=== PATIENT | female | born 1950 | race Caucasian/White ===

== ENCOUNTER → 2017-11-26 | Outpatient (CLI) | payer OTHER | LOC: FIMAGING 15:37 | PROVIDERS: ATTEND Family Medicine | DX: Z12.31 Encounter for screening mammogram for malignant neoplasm of breast (principal) ==

== ENCOUNTER 2017-12-01 13:10 | Emergency (ER) | payer OTHER ==
[2017-12-01] MEDS ORDERED: NS 1,000 ML IV ONE (13:41)
[2017-12-01 13:50] LABS: PLATELET COUNT 255 10^3/uL (150-400)
--- NOTE | 2017-12-01 15:00 | EDPHY ---
H & P Time Seen by Provider: 12/01/17 13:17 HPI/ROS: 67-year-old female presents complaining of mild headache for approximately 5 days, and then yesterday began having vomiting, she states she could really not keep any liquids down whatsoever. She denies abdominal pain she denies prior history of migraine or series headaches and states this headache was actually relatively mild. She has had other episodes where when exhausted or extremely dehydrated that she began vomiting. She has a prescription for Phenergan at home and tried this yesterday but continued to have vomiting and presents here today. No fevers or chills No diarrhea No abdominal pain No neck pain She sounds congested but states that is her normal voice and pupil are always asking her if she has a cold, she does say that she frequently has sinus congestion but does not consider that to be an issue today. She has been working long hours and in addition to that she is taking a class outside of work. No change in personality noted by family members. Review of systems As per HPI General no fever no chills no weakness HEENT no eye pain no eye discharge. No eye redness, no sore throat Respiratory no cough, no shortness of breath Cardiac no chest pain, no peripheral edema GI no abdominal pain, no diarrhea, no constipation, positive nausea positive vomiting no flank pain, no hematuria, no dysuria Musculoskeletal no myalgias, no joint pain Heme no easy bruising, no easy bleeding Endo no polyuria, no polydipsia Skin no rashes, no pruritus Neuro no syncope, no dizziness, positive headaches Psych is no suicidal ideation, no homicidal ideation Past Medical/Surgical History: Frequent sinus infections Social History: Alcohol rarely, socially Denies drug use Smoking Status: Never smoked Physical Exam: 67-year-old female, petite, in no acute distress nontoxic appearance, afebrile HEENT atraumatic normocephalic, extraocular muscles intact, anicteric Oropharynx negative for erythema negative exudate, tolerating her own secretions Neck supple no meningismus, no JVD Lungs clear to auscultation bilaterally, no respiratory distress Heart regular rate and rhythm without murmur rub or gallop Abdomen nondistended normoactive bowel sounds soft nontender Back no CVA tenderness, no step-offs, no spinal tenderness Extremities no cyanosis clubbing or edema Neuro alert and oriented, no focal deficits Constitutional: Initial Vital Signs Temperature (C) 37.2 C 12/01/17 13:20 Heart Rate 88 12/01/17 13:20 Respiratory Rate 18 12/01/17 13:20 Blood Pressure 158/90 H 12/01/17 13:20 O2 Sat (%) 96 12/01/17 13:20 O2 Delivery Mode Room Air Allergies/Adverse Reactions: aspirin Allergy (Verified 12/01/17 13:20) Penicillins Allergy (Verified 12/01/17 13:19) Sulfa (Sulfonamide Antibiotics) Allergy (Verified 12/01/17 13:19) Home Medications: Medication Instructions Recorded Ondansetron Odt [Zofran Odt 4 mg 4 mg PO Q4 PRN #10 tab 12/01/17 (*)] Medical Decision Making - Diagnostics Imaging Results: Imaging Impressions Head CT 12/01/17 13:40 Impression: 1. No significant intracranial abnormality seen. 2. Moderate paranasal sinus disease. If symptoms worsen, additional imaging may be necessary. Findings discussed with Pia Austin MD at 14:18 hour, 12/01/2017. ED Course/Re-evaluation: Patient seen and evaluated for mild headache with vomiting Patient had taken Phenergan yesterday without relief but is currently refusing antiemetics. IV established to give her IV fluids, and bloods drawn. CBC within normal limits Erythrocyte sedimentation rate normal BMP normal CT brain negative for acute intracranial pathology Paranasal sinus fluid Impression Headache Vomiting,? Stress-induced, question exhaustion Mild sinus fullness paranasal on CT scan Plan Patient feeling markedly better after fluids in emergency department is now tolerating p.o. Fluids here Recommend rest, plenty of fluids In terms of paranasal sinus fluid, recommend decongestant, Flonase, sinus rinse as needed Follow-up with primary care physician Differential Diagnosis: Differential diagnosis considered but not limited to: Migraine, cluster headache, sinusitis, brain tumor, hydrocephalus, acute gastritis, dehydration, exhaustion - Data Points Laboratory Results: Laboratory Results 12/01/17 13:35 12/01/17 13:35 12/01/17 12/01/17 12/01/17 13:35 13:35 13:35 WBC 7.55 10^3/uL 10^3/uL (3.80-9.50) RBC 4.57 10^6/uL 10^6/uL (4.18-5.33) Hgb 14.2 g/dL g/dL (12.6-16.3) Hct 40.4 % % (38.0-47.0) MCV 88.4 fL fL (81.5-99.8) MCH 31.1 pg pg (27.9-34.1) MCHC 35.1 g/dL g/dL (32.4-36.7) RDW 12.7 % % (11.5-15.2) Plt Count 255 10^3/uL 10^3/uL (150-400) MPV 10.0 fL fL (8.7-11.7) Neut % (Auto) 74.5 % H % (39.3-74.2) Lymph % (Auto) 16.7 % % (15.0-45.0) [place] % (Auto) 7.9 % % (4.5-13.0) Eos % (Auto) 0.1 % L % (0.6-7.6) Baso % (Auto) 0.5 % % (0.3-1.7) Nucleat RBC Rel Count 0.0 % % (0.0-0.2) Absolute Neuts (auto) 5.62 10^3/uL 10^3/uL (1.70-6.50) Absolute Lymphs (auto) 1.26 10^3/uL 10^3/uL (1.00-3.00) Absolute Monos (auto) 0.60 10^3/uL 10^3/uL (0.30-0.80) Absolute Eos (auto) 0.01 10^3/uL L 10^3/uL (0.03-0.40) Absolute Basos (auto) 0.04 10^3/uL 10^3/uL (0.02-0.10) Absolute Nucleated RBC 0.00 10^3/uL 10^3/uL (0-0.01) Immature Gran % 0.3 % % (0.0-1.1) Immature Gran # 0.02 10^3/uL 10^3/uL (0.00-0.10) ESR 8 MM/HR MM/HR (0-30) D-Dimer < 0.27 ug/mLFEU ug/mLFEU (0.00-0.50) Sodium 134 mEq/L L mEq/L (135-145) Potassium 3.4 mEq/L L mEq/L (3.5-5.2) Chloride 100 mEq/L mEq/L (97-110) Carbon Dioxide 22 mEq/l mEq/l (22-31) Anion Gap 12 mEq/L mEq/L (8-16) BUN 15 mg/dL mg/dL (7-23) Creatinine 0.6 mg/dL mg/dL (0.6-1.0) Estimated GFR > 60 Glucose 116 mg/dL H mg/dL (70-100) Calcium 9.5 mg/dL mg/dL (8.5-10.4) Medications Given: Discontinued Medications Sodium Chloride (Ns) 1,000 mls @ 0 mls/hr IV ONCE ONE PRN Reason: Wide Open Stop: 12/01/17 13:42 Last Admin: 12/01/17 13:43 Dose: 1,000 mls Departure - Departure Disposition: Home, Routine, Self-Care Clinical Impression: Headache, Vomiting Condition: Good Instructions: Acute Headache (ED), Acute Nausea and Vomiting (ED) Referrals: NONE *PRIMARY CARE P,. [Primary Care Provider] - As per Instructions Prescriptions: Ondansetron Odt [Zofran Odt 4 mg (*)] 4 mg PO Q4 PRN #10 tab PRN Reason: Nausea/Vomiting, Use 1st
[2017-12-01 15:25] VITALS: BP 167/108
== END 2017-12-01 15:25 | disposition home or self-care (01) ==
LOC: CED 13:10
DX: R51 Headache (principal); R11.10 Vomiting, unspecified; Z88.6 Allergy status to analgesic agent; Z88.0 Allergy status to penicillin; Z88.2 Allergy status to sulfonamides
CPT/HCPCS: 70450-PO; 80048-PO; 85025-PO; 85378-PO; 85652-PO

== ENCOUNTER → 2018-12-31 | Outpatient (CLI) | payer OTHER | LOC: FIMAGING 07:59 ==